=== PATIENT | female | born 1990 | race Caucasian/White ===

== ENCOUNTER 2016-12-23 15:33 | Emergency (ER) | payer OTHER ==
[2016-12-23 16:26] VITALS: BP 120/60
== END 2016-12-23 16:26 | disposition home or self-care (01) ==
LOC: ED 15:33
DX: T19.2XXA Foreign body in vulva and vagina, initial encounter (principal); X58.XXXA Exposure to other specified factors, initial encounter; Y93.89 Activity, other specified; Y99.8 Other external cause status; Y92.89 Other specified places as the place of occurrence of the external cause